=== PATIENT | male | born 1955 | race Caucasian/White ===

== ENCOUNTER 2022-03-30 09:07 | Outpatient (CLI) | payer MEDICARE | END 2022-03-30 09:08 | disposition home or self-care (01) | LOC: CSHCT 09:07 | PROVIDERS: ATTEND Audiologist | DX: H90.3 Sensorineural hearing loss, bilateral (principal) | CPT/HCPCS: 70480 ==

== ENCOUNTER 2022-05-08 08:52 | Outpatient (CLI) | payer MEDICARE, OTHER ==
[2022-05-08 09:57] LABS: Hemoglobin 15.5 g/dL (13.5-17.5); Mean Corpuscular HGB CONC 34.8 g/dL (32.0-36.0); Mean Corpuscular Hemoglobin 30.4 pg (27.0-33.0); Mean Corpuscular Volume 87.3 fl (81.2-95.1); Mean Platelet Volume 9.1 fl (7.4-10.4); Platelet Count 278 10x3/uL (150-450); RBC Distribution Width 12.6 % (11.5-14.5); White Blood Cell (WBC) Count 5.1 10x3/uL (3.5-10.5)
[2022-05-08 10:11] LABS: Anion Gap 11 mmol/L (10-20); BUN (Urea Nitrogen) 20 mg/dL (8.4-25.7); Calc. Creatinine Clearance 0 mL/min (70-130); Calcium 9.1 mg/dL (7.8-10.44); Carbon Dioxide 28 mmol/L (23-31); Chloride 106 mmol/L (98-107); Estimated GFR 86; Glucose 93 mg/dL (80-115); Potassium 4.5 mmol/L (3.5-5.1); Sodium 140 mmol/L (136-145)
== END 2022-05-08 08:53 | disposition home or self-care (01) ==
LOC: CSHLAB 08:52
PROVIDERS: ATTEND Otolaryngology Plastic Surgery within the Head & Neck
DX: Z01.818 Encounter for other preprocedural examination (principal); Z20.822 Contact with and (suspected) exposure to COVID-19
CPT/HCPCS: 80048; 85027; 87811; 93005; 93010

== ENCOUNTER 2022-05-11 07:24 | Day surgery (SDC) | payer MEDICARE, OTHER ==
[2022-05-09 12:25] VITALS: BMI 22.9
[2022-05-11] MEDS ORDERED: Lidocaine 1% MPF 2 ML VIAL ONE (08:08)
[2022-05-11] MEDS ORDERED: Midazolam HCl 2 mg/2 ml Vial ONE (10:25)
[2022-05-11] MEDS ORDERED: Rocuronium Bromide 10 MG/ML (10ML VIAL) ONE (10:25)
[2022-05-11] MEDS ORDERED: Fentanyl 250 MCG/5 ML VIAL ONE (10:25)
[2022-05-11] MEDS ORDERED: Ondansetron PF 4 MG/2 ML Vial ONE (10:25)
[2022-05-11] MEDS ORDERED: Lidocaine 1% PF 5 ML VIAL ONE (10:25)
[2022-05-11] MEDS ORDERED: PROPOFOL 20 ML ONE ×2 (10:25→11:35)
[2022-05-11] MEDS ORDERED: Dexamethasone 20 MG/5 ML VIAL ONE (10:25)
[2022-05-11] MEDS ORDERED: EPINEPHrine 1 MG/ML AMP ONE (10:26)
[2022-05-11] MEDS ORDERED: CEFAZOLIN 1 GM VIAL ONE (10:26)
[2022-05-11] MEDS ORDERED: Mupirocin 2% Ointment 22 GM Tube ONE (10:28)
[2022-05-11] MEDS ORDERED: Lidocaine 1% w/Epinephrine 1:100K 20 ML VIAL ONE (11:05)
[2022-05-11] MEDS ORDERED: Methylene Blue 50 MG/10 ML AMPUL ONE (11:05)
[2022-05-11] MEDS ORDERED: HYDROcodone/Acetaminophen 5/325 mg Tablet ONE (13:36)
== END 2022-05-11 14:15 | disposition home or self-care (01) ==
LOC: CSHSDC 07:24
PROVIDERS: ATTEND Otolaryngology Plastic Surgery within the Head & Neck
PROC: F14Z09Z Cochlear Implant Assessment using Cochlear Implant Equipment (ICD-10-PCS; principal; 2022-05-11)
DX: H90.3 Sensorineural hearing loss, bilateral (principal); H93.13 Tinnitus, bilateral
CPT/HCPCS: 69930; 70260; L8614 ×2; Q9968; J0171; J0690; J1100; J2250; J2405; J2704; J3010